=== PATIENT | male | born 1985 | race Caucasian/White ===

== ENCOUNTER 2019-12-26 10:01 | Day surgery (SDC) | payer BC ==
[2019-12-24 10:57] VITALS: BMI 33.2
[~2019-12-26 10:01] MED LIST: LACTATED RINGERS 1,000 ML IV SCH; LIDOCAINE 1% (10MG/ML) FOR IV START INTRADERMA PRN
[2019-12-26 10:15] VITALS: RESP 18; TEMP 98.2
[2019-12-26] MEDS ORDERED: PROPOFOL 10 MG/ML 20 ML VIAL IV ONE (10:32)
--- NOTE | 2019-12-26 11:03 | P.PCN ---
Date of Procedure: 12/26/19 Description of Procedure: BRIEF HISTORY: Patient is a 34-year-old female with a outpatient colonoscopy for evaluation of rectal bleed. No prior colonoscopy. The patient reports intermittent bright red blood per rectum mixed with stool and on the toilet paper with wiping. No family history of colon cancer or inflammatory bowel disease. No nighttime symptoms. Bowel movements are usually regular with only occasional loose bowel movements. No unintentional weight loss reported. PROCEDURE PERFORMED: Colonoscopy with biopsy and polypectomy. PREOPERATIVE DIAGNOSIS: Rectal bleed, no prior colonoscopy. ESTIMATED BLOOD LOSS: Minimal. IV sedation per Anesthesia. PROCEDURE: After informed consent was obtained, the patient, was brought into the endoscopy unit. IV sedation was administered by Anesthesia under continuous monitoring. Digital rectal examination was normal. Initially the Olympus CF-190 flexible video colonoscope was then inserted in the rectum, gradually advanced into the cecum without any difficulty. Careful examination was performed as the scope was gradually being withdrawn. Ileocecal valve and the appendiceal orifice were visualized and appeared normal. Prep was excellent. Mucosa of the cecum, ascending colon, transverse colon, descending colon, sigmoid colon, and rectum appeared normal, as did the terminal ileum with random biopsies taken of the terminal ileum, right and left colon. Diminutive 2 mm rectal polyp removed with cold forcep polypectomy. Retroflexion was performed in the rectum and no lesions were seen, low-grade internal hemorrhoids somewhat irritated. The patient tolerated the procedure well. IMPRESSION: Normal-appearing colon from rectum to cecum, with random biopsy can of the right colon, left colon and normal-appearing terminal ileum. Diminutive rectal polyp removed with cold forcep polypectomy. Low-grade internal hemorrhoids. RECOMMENDATIONS: Findings of this examination were discussed with the patient and his . Okay to resume diet. Okay to resume medication. Await pathology from polypectomy and biopsies. Patient will likely need repeat colonoscopy in 7-10 years pending pathology from polypectomy. Local hemorrhoidal care if patient sees further bleeding including tucks wipes, sitz baths, warm compresses, and stool softener.
[2019-12-26 11:27] VITALS: BP 116/70; PULSE 72
== END 2019-12-26 11:05 | disposition home or self-care (01) ==
LOC: ORWHC2ENDO 10:01
PROVIDERS: ATTEND Internal Medicine
DX: K64.8 Other hemorrhoids (principal); K62.1 Rectal polyp; M10.9 Gout, unspecified; Z79.899 Other long term (current) drug therapy; Z90.49 Acquired absence of other specified parts of digestive tract; Z98.890 Other specified postprocedural states
CPT/HCPCS: 88305; 45380; J2704